=== PATIENT | male | born 1940 | race Caucasian/White ===

== ENCOUNTER 2022-06-17 05:05 | Observation (INO) ==
--- NOTE | 2022-05-20 10:53 | PAT Medication Instructions ---
Medication Instructions Date of Service May 20, 2022 Home Medications calcium 600 mg capsule 600 mg PO QAM celecoxib 200 mg capsule (Celebrex) 200 mg PO BID cholecalciferol (vitamin D3) 25 mcg (1,000 unit) tablet (Vitamin D3) 25 mcg PO QAM ferrous sulfate 325 mg (65 mg iron) tablet 325 mg PO 3XWK folic acid 1 mg tablet 1 mg PO QAM levothyroxine 137 mcg tablet 137 mcg PO QAM methotrexate sodium 2.5 mg tablet 2.5 mg PO UD ASK your surgeon for instructions celecoxib 200 mg capsule (Celebrex) 200 mg PO BID DO NOT take the morning of surgery calcium 600 mg capsule 600 mg PO QAM cholecalciferol (vitamin D3) 25 mcg (1,000 unit) tablet (Vitamin D3) 25 mcg PO QAM ferrous sulfate 325 mg (65 mg iron) tablet 325 mg PO 3XWK folic acid 1 mg tablet 1 mg PO QAM Take morning of surgery With a small sip of water, OTHERWISE NOTHING TO EAT OR DRINK AFTER MIDNIGHT: levothyroxine 137 mcg tablet 137 mcg PO QAM STOP taking 7 days before surgery methotrexate sodium 2.5 mg tablet 2.5 mg PO UD Other Notes If you have any questions please call us at [phone] or [phone] or [phone] or [phone]
--- NOTE | 2022-05-25 11:51 | Anesthesiology Consultation ---
Date of Service May 25, 2022 Assessment & Plan (1) Encounter for pre-operative examination: Plan - PCP appointment today, ongoing back pain: upcoming CT abdomen and pelvis ordered by PCP. Pt denies change in symptoms since seeing PCP earlier today. Will need PCP to comment if pt is acceptable to proceed pending planned work-up. Awaiting PCP response. - Outpatient joint assessment: Patient is currently scheduled for inpatient pathway. If re-evaluated pending system levels during current pandemic/surgeon requests outpatient pathway, patient is not acceptable candidate for outpatient joint program from anesthesia standpoint. Chart Review Chart Review: Pending: Refer to Additional Notes / Consult section and Patient seen in Pre Admission Testing Teaching & Discussion Pre-Anesthesia Teaching/Discussion Notes: Instructed NPO after midnight before surgery, except medications with 15 cc of water. Medication instructions provided according to the PAT guidelines. History Surgery Operation Date: 06/17/22 07:00 Proposed Procedures p Right Total Knee Arthroplasty - Wilder Chang MD Height/Weight Height: 5 ft 10 in Weight: 78 kg Allergies Allergy/AdvReac Type Severity Reaction Status Date / Time No Known Allergies Allergy Mild Unverified 05/19/22 11:05 Medications Home Medications Medication Instructions Recorded Confirmed Last Taken calcium 600 mg capsule 600 mg PO QAM 05/19/22 05/19/22 Unknown celecoxib 200 mg capsule (Celebrex) 200 mg PO BID 05/19/22 05/19/22 Unknown cholecalciferol (vitamin D3) 25 25 mcg PO QAM 05/19/22 05/19/22 Unknown mcg (1,000 unit) tablet (Vitamin D3) ferrous sulfate 325 mg (65 mg 325 mg PO 3XWK 05/19/22 05/19/22 Unknown iron) tablet folic acid 1 mg tablet 1 mg PO QAM 05/19/22 05/19/22 Unknown levothyroxine 137 mcg tablet 137 mcg PO QAM 05/19/22 05/19/22 Unknown methotrexate sodium 2.5 mg tablet 2.5 mg PO UD 05/19/22 05/19/22 Unknown Past Medical History Medical History (Updated 05/25/22 @ 16:06 by Hal Baker PA-C) Elevated hemidiaphragm right History of prostate cancer radiation several yrs ago, pt unsure of exact yr/interval Hx of sleep apnea Hypothyroidism Kidney stones Rheumatoid arthritis Patient denies h/o stroke, seizures, heart attack, heart failure, DM, HTN, blood clots or blood transfusions. Exercise / Class Metabolic Activity II 4-5 Yardwork/Stairs/Walk up hill (denies CP or SOB with 1 FOS) Past Family History Family History (Updated 05/25/22 @ 16:03 by Hal Baker PA-C) Other Alzheimer disease No family history of adverse response to anesthesia Osteoarthritis Rheumatoid arthritis Past Surgical History Surgical History H/O foot surgery right H/O hand surgery right H/O inguinal hernia repair X 2 H/O wrist surgery left History of colonoscopy History of tooth extraction Hx of prostate biopsy Past Anesthesia History No Hx of Anesthesia Complications and No Family Hx of Anesthesia Complications History of PONV No Hx of PONV and No Hx of Motion Sickness Social History Smoking Status: Former smoker tobacco type: cigarettes Do You Dip or Chew Tobacco: No Smoking End Date: 60+YEARS AGO Hx Alcohol Use: Yes Alcohol type: beer alcohol intake frequency: a few times a month substance use type: does not use Review of Systems Patient denies chest pain, shortness of breath, dyspnea on exertion, reflux, fever, chills, cough, wheezing, or palpitations. Physical Exam Vital Signs Vitals BP 110/75 P 83 TEMP 98.8 SP02 95% on RA RESP 18 Physical Full cervical extension range of motion without pain TMD 3.5 finger breadths Mallampati Score 3 Dentition: intact, partial upper left; denies chipped or loose teeth, caps/crowns Lungs: normal respiratory effort. Clear throughout to auscultation, no adventitious breath sounds Cardiac: regular rate and rhythm, no murmurs noted Carotid arteries: negative bruit bilat Lab Results Anesthesia Preop Results Results Anesthesia Widget: WBC 8.97 K/ul (4.8-10.8) 05/25/22 Hgb 14.4 g/dl (14.0-18.0) 05/25/22 Hct 42.5 % (40.1-51.0) 05/25/22 Plt 194 K/uL (130-400) 05/25/22 Na 139 mmol/L (136-145) 05/25/22 K 4.3 mmol/L (3.5-5.1) 05/25/22 Cl 103 mmol/L (98-107) 05/25/22 CO2 30 mmol/L (21-32) 05/25/22 BUN 19 mg/dl (6-23) 05/25/22 Creat 0.97 mg/dl (0.6-1.4) 05/25/22 Glucose Level 110 mg/dl (70-99(Fasting)) H 05/25/22 PT 10.9 Seconds (9.0-12.0) 05/25/22 PTT 28.2 Seconds (21.0-31.0) 05/25/22 INR 1.0 (0.9-1.1) 05/25/22 Blood Type O Positive 05/25/22 Antibody Screen NEGATIVE 05/25/22 Testing Laboratory Results UA 05/25/22: small bili, small Hgb POC, neg nitrite and leuk est Electrocardiogram Date: 05/26/22 NSR with sinus arrhythmia, rate 79 bpm Incomplete RBBB Left anterior fascicular block Nonspecific T wave abnormality Chest X-Ray Date: 02/05/22 No lines and tubes are seen. The cardiomediastinal silhouette is normal. Elevation of the right hemidiaphragm is again seen. Previously noted right pulmonary density likely represents focal atelectasis versus scar. No evidence of pleural effusion or pneumothorax. IMPRESSION: No acute abnormalities and in particular no evidence of pneumonia. Cervical Spine Date: 05/25/22 No fractures or subluxations are identified. Degenerative changes are noted in the cervical spine. Limited range of motion with flexion and extension noted. Prevertebral soft tissues are within normal limits. IMPRESSION: Degenerative changes without evidence of acute abnormality. COVID-19 Risk Screen Screening Information COVID-19 Screen Date: 05/25/22 Exposure 21 Days Family/Household +COVID Last 21 Days: No Exposure 10 Days Any COVID Exposure Last 10 Days: No Symptoms Last 10 Days Experienced COVID Sx Last 10 Days: No + COVID 0-90 Days COVID + in Last 0-90 Days: No
--- NOTE | 2022-05-25 16:07 | History & Physical Report ---
Date of Service May 25, 2022 Assessment & Plan (1) Right knee DJD: Plan: Postoperative prescriptions for Percocet and warfarin will be provided at discharge from the hospital. Anticipate discharge to home with home health services. He would like home therapy for 2 weeks and then transition to outpatient PT at [facility]. PDMP was checked and there were no concerning findings. The patient is aware of COVID-19 risks associated with surgery. He is currently asymptomatic of any COVID-19 symptoms. He already has access to a cane. Prescription was provided for a walker. He will bring this with him to the hospital. He is already scheduled to obtain medical clearance from his PCP. History of Present Illness Chief Complaint: Right knee pain Primary Care Provider: Alonzo Meza DO This 81-year-old male presents today with his , for his preoperative history and physical. He is scheduled to undergo a right knee total knee arthroplasty on 06/17/2022. He has had longstanding history of right knee pain. It has been ongoing for years. He did do well with viscosupplementation for many years, but states it has not been helping over the last 10-12 months. He did try cortisone injections as well without lasting relief. No numbness or tingling. No locking or catching. No buckling. Pain is affecting his ADLs. It is worse with weightbearing. He elected to proceed with surgical intervention in hopes of improving his pain and function. Preoperative imaging has been obtained. Allergies Allergy/AdvReac Type Severity Reaction Status Date / Time No Known Allergies Allergy Mild Unverified 05/19/22 11:05 Home Medications Medication Instructions Recorded Confirmed Type calcium 600 mg capsule 600 mg PO QAM 05/19/22 05/19/22 History celecoxib 200 mg capsule (Celebrex) 200 mg PO BID 05/19/22 05/19/22 History cholecalciferol (vitamin D3) 25 25 mcg PO QAM 05/19/22 05/19/22 History mcg (1,000 unit) tablet (Vitamin D3) ferrous sulfate 325 mg (65 mg 325 mg PO 3XWK 05/19/22 05/19/22 History iron) tablet folic acid 1 mg tablet 1 mg PO QAM 05/19/22 05/19/22 History levothyroxine 137 mcg tablet 137 mcg PO QAM 05/19/22 05/19/22 History methotrexate sodium 2.5 mg tablet 2.5 mg PO UD 05/19/22 05/19/22 History Past Med/Surg History Medical History (Updated 05/25/22 @ 16:06 by Hal Baker PA-C) Elevated hemidiaphragm right History of prostate cancer radiation several yrs ago, pt unsure of exact yr/interval Hx of sleep apnea Hypothyroidism Kidney stones Rheumatoid arthritis Surgical History H/O foot surgery right H/O hand surgery right H/O inguinal hernia repair X 2 H/O wrist surgery left History of colonoscopy History of tooth extraction Hx of prostate biopsy Family History (Updated 05/25/22 @ 16:03 by Hal Baker PA-C) Other Alzheimer disease No family history of adverse response to anesthesia Osteoarthritis Rheumatoid arthritis Social History (Updated 05/25/22 @ 16:04 by Hal Baker PA-C) Smoking Status: Former smoker Second Hand Exposure: Yes ( A CHILD); Hx Alcohol Use: Yes Alcohol type: beer Preferred Language: Barbadian Hearing Ability: Normal Counter Stitcher Required: No Beliefs That Will Affect Care: None marital status: Current Living Situation: Spouse current occupational status: retired Feels Safe at Home: Yes Assistive Devices: Glasses Review of Systems Review of Systems: All systems reviewed & are unremarkable except as noted in HPI & below A total of 10 systems were reviewed. Physical Exam Physical Exam: Vitals: Height 173 cm, weight 76.8 kg, BMI 25.7, temperature 36.5, blood pressure 118/74, pulse 86, O2 sat 95% on room air. General: Well-developed, well-nourished elderly white male in no acute distress. Sitting on a chair. Alert and oriented. Skin: Warm and dry with good turgor. No rashes or lesions. No ecchymosis. No intra-articular effusion. HEENT: Normocephalic, atraumatic. Eyes: PERRLA, EOMI. He is wearing glasses. Nares and oropharynx exams deferred due to COVID precautions. Heart RRR. Occasional premature beat. No MGR. Lungs: Clear to auscultation bilaterally. No crackles, rhonchi or wheezing. Good air movement. Abdomen: Bowel sounds present x4, soft and nontender. No organomegaly. No masses. Musculoskeletal: Right knee evaluation reveals no intra-articular effusion, redness or warmth. There is a lack of about 5 degrees of terminal extension. Flexion to greater than 100 degrees. Strength is 5/5 with fairly good quad tone given his age. Obvious arthritic changes. There is a large soft fluctuant mass present around the medial joint line. I suspect it is a parameniscal cyst. He has discomfort with palpation over the medial and lateral joint lines. Stable collateral ligaments. No defect in the patellar tendon or quadriceps tendon. He is ambulatory today with an antalgic gait. Neurologic: Gross sensation is intact across the right leg by soft touch. Peripheral pulses are 2+. Results & Data Results & Data ([facility]) Diagnostic Findings Radiographic imaging obtained today of the right knee shows end-stage DJD of the right knee. There is total joint space loss, periarticular osteophytes, and subchondral sclerosis. Code Status & VTE Plan VTE Prophylaxis Plan VTE Prophylaxis will be ordered: Yes
--- NOTE | 2022-06-17 05:28 | History & Physical Bridge Note ---
Date of Service June 17, 2022 History & Physical Bridge Note I have examined the patient, reviewed the History & Physical and in the interval since the performance of the History & Physical I have noted the following changes of clinical significance: no changes noted
[2022-06-17] MEDS ORDERED: ROPIVACAINE 0.5% HCL/PF 150 MG, BUPIVACAINE 0.75% MPF 20 ML, EPINEPHrine 0.15 MG, Ketor... INFIL SCH (06:00)
[2022-06-17] MEDS ORDERED: LR 60ML/HR IV SCH (06:00)
[2022-06-17] MEDS ORDERED: TRANEXAMIC ACID 1,000 MG **IV Pre-op IV SCH (06:00)
[2022-06-17] MEDS ORDERED: LR 500ML BOLUS, THEN 15ML/HR IV SCH (06:00)
[2022-06-17] MEDS ORDERED: ceFAZolin 2000MG 2,000 MG/15 ML SYR IV SCH (06:00)
[2022-06-17] MEDS ORDERED: ROPIVACAINE 0.5% 5 MG/ML 30 ML VIAL ONE (06:33)
[2022-06-17] MEDS ORDERED: BUPIVACAINE 0.5 % 5 MG/1 ML PF 10ML VIAL ONE (06:33)
[2022-06-17] MEDS ORDERED: ORTHO JOINT ANESTHETIC ONE (06:36)
[2022-06-17] MEDS ORDERED: fentaNYL citrate 100 MCG/2 ML VIAL ONE (06:41)
[2022-06-17] MEDS ORDERED: LIDOCAINE 2% MPF LOCAL 5 ML VIAL INFIL ONE (06:41)
[2022-06-17] MEDS ORDERED: MIDAZOLAM HCL 1 MG/ML 2ML VIAL ONE (06:41)
[2022-06-17] MEDS ORDERED: ePHEDrine sulfate 50 MG/ML AMP IV PRN (06:41)
[2022-06-17] MEDS ORDERED: ATROPINE SULFATE 0.1 MG/ML 10ML SYR IV PRN (06:41)
[2022-06-17] MEDS ORDERED: PROPOFOL IV EMULSION 10 MG/ML 20 ML VIAL IV ONE (06:41)
[2022-06-17] MEDS ORDERED: fentaNYL citrate 100 MCG/2 ML VIAL IV PRN (06:41)
[2022-06-17] MEDS ORDERED: ONDANSETRON INJ 2 MG/ML 2 ML VIAL ONE ×2 (06:41→07:14)
[2022-06-17] MEDS ORDERED: ONDANSETRON INJ 2 MG/ML 2 ML VIAL IV PRN ×2 (06:41→11:30)
[2022-06-17] MEDS ORDERED: DEXAMETHASONE SOD INJ 4 MG/ML VIAL ONE (08:20)
[2022-06-17] MEDS ORDERED: PHENYLEPHRINE 100MCG/ML 5ML SYR ONE (08:21)
--- NOTE | 2022-06-17 08:22 | Post Operative Brief Note ---
Immediate Post Op Note v1 Date of Surgery June 17, 2022 Pre & Post Diagnosis Operation Date: 06/17/22 07:00 Pre-Op Diagnosis: Right Knee Degenerative Joint Disease Post-Op Diagnosis: Right Knee Degenerative Joint Disease I identified the patient and participated in the time-out.: Yes Procedure Operation Date: 06/17/22 07:00 Actual Procedures p Right Total Knee Arthroplasty(Right) - Wilder Chang MD Surgeon Wilder Chang MD Interface [facility] Blood Loss 30 Findings Consistent with Post-Op Diagnosis
--- NOTE | 2022-06-17 08:35 | Operative Report ---
Post Operative Report Pre & Post Diagnosis Operation Date: 06/17/22 07:00 Pre-Op Diagnosis: Right Knee Degenerative Joint Disease Post-Op Diagnosis: Right Knee Degenerative Joint Disease I identified the patient and participated in the time-out.: Yes Procedure Operation Date: 06/17/22 07:00 Actual Procedures p Right Total Knee Arthroplasty(Right) - Wilder Chang MD Surgeon CHET Chang MD Sleeve Turner Samuel CALDWELL Estimated Blood Loss 30 Findings Consistent with Post-Op Diagnosis see operative report Specimens see operative report Drains none Complications none Disposition Accompanied Patient To Recovery: Yes Indications This 81-year-old male presented to the office with complaints of persisting right knee pain. He had tried conservative care measures without improvement. He elected to proceed with surgical intervention after being educated about potential risks and outcomes. Preoperative imaging was obtained. Description of Procedure Patient was administered a spinal anesthetic and then taken to the operating room where he was given sedation. He was prepped and draped in the usual st erile fashion. Please see Dr. Chang's operative report for specifics of the procedure. I was present for the entire case from initial patient positioning through final wound closure. Assistance was provided in tissue retraction, hemostasis, trial implant placement, final implant placement, and final wound closure. Patient was taken to the recovery room in satisfactory condition. I attest to the content of the Intraoperative Record and any orders documented therein. Any exceptions are noted below.
[2022-06-17] MEDS ORDERED: TRANEXAMIC ACID / 0.7% NACL 1,000 MG/100 ML BAG IV ONE (08:47)
--- NOTE | 2022-06-17 08:55 | XRay Report ---
XR knee RT 1 or 2V routine CLINICAL HISTORY: S/P R TKA TECHNIQUE: 2 views of the right knee were obtained. Comparison: Comparison is made to right knee radiographs 05/25/2022 FINDINGS: Patient is status post total knee arthroplasty with expected postsurgical changes including soft tiss ue swelling and subcutaneous emphysema. No periarticular lucency or hardware fracture is seen. IMPRESSION: Expected postoperative appearance status post placement of total knee arthroplasty. ACT 112: Negative or not required by law. Electronically signed by: Allan Gonzáles M.D. 06/17/2022 8:54 AM
--- NOTE | 2022-06-17 09:01 | Progress Notes ---
DATE OF NOTE: 06/17/2022 SUBJECTIVE: Postop check status post right total knee replacement. The patient is doing well. Denies any chest pain, shortness of breath, fever, chills, nausea, vomiti ng or headache. OBJECTIVE: VITAL SIGNS: Stable. He is afebrile. NEUROVASCULAR CHECK: Femoral sciatic nerve is limited by his spinal. Wound dressing clean, dry and i ntact. Calves nontender. Nonswollen. IMAGING: X-rays, AP and lateral of his right knee reveals excellent positioning of his total knee re placement. ASSESSMENT: Status post right total knee replacement. Continue with care pathway. Informed his wif e that he was finished. Case management to arrange plans postoperative. Discharge tomorrow. Job ID: [id number]
--- NOTE | 2022-06-17 09:07 | Discharge Summary (DS) ---
DATE OF ADMISSION: 06/17/2022. DATE OF DISCHARGE: 06/18/2022 He does well overnight. CHIEF COMPLAINT: Right knee pain. HISTORY OF PRESENT ILLNESS: Underwent elective right total knee replacement. Hospital course has be en uneventful to date. The patient has had chronic knee pain for decades. He has failed conservative management including m ultiple series of injections. Wants to proceed with surgical treatment. This was performed. Surgic al procedure without any issues. PAST MEDICAL HISTORY: Remarkable for hemidiaphragm elevation on the right, history of prostate cance r, sleep apnea, hypothyroidism, kidney stones, rheumatoid arthritis. HISTORY OF SURGERY: Includes foot surgery, hand surgery, hernia repairs, wrist surgery, colonoscopies , tooth extraction and prostate biopsy. FAMILY HISTORY: Remarkable for Alzheimer disease, osteoarthritis, rheumatoid arthritis. SOCIAL HISTORY: Reveals he is , former smoker. Social alcohol. , lives with his . Feels safe at home. Wears glasses. REVIEW OF SYSTEMS: Reveals no chest pain, shortness of breath, fever, chills, nausea, vomiting or he adache. He has a minor cough. IMAGING: Postoperative x-rays look excellent. ASSESSMENT: Doing well status post right total knee replacement. Continue postoperative care nkechi og. Discharge home tomorrow if he does well overnight. Job ID: [id number]
--- NOTE | 2022-06-17 09:09 | Operative Report (OR) ---
DATE OF PROCEDURE: 06/17/2022. SURGEON: Wilder Chang MD. CERAMIC ARTIST: Hal Baker PA-C. No resident or fellow available. PREOPERATIVE DIAGNOSIS: Osteoarthritis with varus deformity, right knee. POSTOPERATIVE DIAGNOSIS: Osteoarthritis with varus deformity, right knee. OPERATION PERFORMED: Cemented right total knee replacement. SUMMARY OF IMPLANTS: Size 4 narrow right femur, size 4 mobile bearing tray, size 38 patella, size 4 x 10 mm posterior cruciate substituting insert, J and J rotating platform total knee replacement. ESTIMATED BLOOD LOSS: 30 mL CRYSTALLOID: Per anesthesia. PATHOLOGY: Pending on bone. DVT PROPHYLAXIS: Per protocol. PERIOPERATIVE SITUATION: Medically cleared male with intractable knee pain, has been followed for de cades. At this point in time, wants to proceed with surgical treatment. He understands the risks an d consequences including infection, revision, stiffness, etc. DESCRIPTION OF PROCEDURE: The patient was appropriately identified, site verified, consent verified. Antibiotics were confirmed as being given. The right lower extremity was prepped and draped in the usual routine fashion. Tourniquet was inflated to 275 mmHg after exsanguination of the limb with a rubber Esmarch bandage for a total of 48 minutes. Midline exposure was utilized. Parapatellar arthr otomy performed. Synovectomy completed. Osteophytes resected. Distal femur entered. Cruciates res ected. Tibia was subluxated, menisci resected. Distal femur resected 12 mm, proximal tibia 4 mm, th e extension gap was excellent. The femur was sized between a 5 and a 4, was measured 5, cut 4. No n otching. Flexion gap was excellent. The posterior capsule was injected with Orthomix. The box cut was then made a size 4 narrow fit well. Tibia was then subluxated, broached and reamed to a size 4. A 10 mm tray offered excellent stability , excellent extension, excellent flexion and excellent mid range stability. Patella was then everted , resected leaving 15 mm and a 38 button applied after seating holes made, it tracked well. All tria l implants were then removed after the Orthomix was injected. The wound was irrigated with Pulsavac, Betadine and then Pulsavac, and then permanently cemented the implants in tibia, femur, and patella in that order. At 12 minutes, the tourniquet deflated. Minor bleeding points controlled with electr ocautery. At 14 minutes, the knee flexed. The trial spacer removed. No cement removal was required . The wound was irrigated with Pulsavac and Betadine one final time and then the permanent liner sea vasquez. The knee reduced and closed at 40 degrees of flexion with #2 Vicryl, 2-0 Vicryl and stainless s marta clips. Appropriate dressing applied. The patient was transferred to recovery room in satisfact ory condition, having tolerated the procedure well. The patient's was notified following the una mcnulty. Job ID: [id number]
--- NOTE | 2022-06-17 10:50 | Anesthesiology Progress Note ---
Date of Service June 17, 2022 Anesthesia Post Procedure Vital Signs Vital Signs: Temp Pulse Pulse Resp BP Pulse Ox O2 Del Method 06/17/22 10:30 98.6 F 63 21 111/73 97 Nasal Cannula 06/17/22 10:00 55 L 20 118/79 95 Nasal Cannula 06/17/22 09:50 62 21 125/69 95 Nasal Cannula 06/17/22 09:40 56 L 16 127/75 99 Nasal Cannula 06/17/22 09:00 59 L 15 123/52 L 97 Nasal Cannula 06/17/22 08:50 67 20 105/59 L 92 Room Air 06/17/22 09:30 98.2 F 55 L 19 120/75 98 Nasal Cannula 06/17/22 09:20 59 L 22 124/73 98 Nasal Cannula 06/17/22 09:10 56 L 17 95/66 L 97 Nasal Cannula 06/17/22 08:40 70 22 110/71 98 Oxymask 06/17/22 08:33 98.2 F 66 20 100/67 99 Oxymask 06/17/22 05:38 97.5 F L 79 20 135/105 H 96 Room Air O2 Flow Rate 06/17/22 10:30 2 06/17/22 10:00 2 06/17/22 09:50 2 06/17/22 09:40 2 06/17/22 09:00 2 06/17/22 08:50 06/17/22 09:30 2 06/17/22 09:20 2 06/17/22 09:10 2 06/17/22 08:40 5 06/17/22 08:33 5 06/17/22 05:38 Transfer of Care Handoff Completed per policy Notes Mental Status: alert / awake / arousable and participated in evaluation Patient Amnestic to Procedure: Yes Nausea / Vomiting: adequately controlled Pain: adequately controlled Airway Patency, RR, SpO2: stable & adequate BP & HR: stable & adequate Hydration State: stable & adequate Neuraxial Anesthesia: was administered and sensory block is resolving Anesthetic Complications: no major complications apparent and Pt Satisfied with anesthetic care Notes: In PACU, the patient was noted to have inverted T waves on the monitor. The patient remained comfortable and asymptomatic denying CP or SOB. A 12 lead EKG was ordered showing inverted T waves on the lateral leads. I spoke with the orthopedic team, and I recommended that medicine should be consulted to further evaluate the patient. The patient was otherwise stable and stable for discharge to the floor.
--- NOTE | 2022-06-17 11:09 | Hospitalist Consultation ---
Date of Consultation June 17, 2022 Assessment & Plan (1) Acute electrocardiogram changes: Concern for TWI in lateral leads jeni/postoperatively. Patient with no known CAD, prior IL or cardiovascular disease. No chest pain or shortness of breath usually on exertion Suspect TWI is just slightly more pronounced from pre-op EKG showing non- specific TW abnormal flattening in lateral leads Will observe on telemetry Low suspicion of ACS therefore aspirin deferred given just post operative from TKA As long as troponin down-trending and not significant raised, no wall motion abnormalities on TTE or arrhythmia on telemetry; no need for cardiology consult (2) Right knee DJD: Pain, diet, bowel and VTE prophylaxis management per primary orthopedic team (3) Rheumatoid arthritis: Restart methotrexate when okay by orthopedics Continue folic acid (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 Actual surgery reportedly uncomplicated with estimated blood loss of 30 mL. However during surgery he did have a lot of coughing and was noted to have T wave inversions in the lateral leads. Postop EKG confirms T wave inversions in lateral leads. On advice of anesthesia medicine was consulted to assess this. The patient reports no previous myocardial infarction, coronary artery disease or stroke. He has been limited in his walking due to his right knee arthritis however he reports no chest pain or shortness of breath on exertion. He has a past medical history of hypothyroidism and rheumatoid arthritis. No hypercholesterolemia. He is a former smoker 60+ years ago. Patient seen in [facility] after surgery. He reports feeling well at this time with no chest pain or shortness of breath. No palpitations, orthopnea, PND. Allergies Allergy/AdvReac Type Severity Reaction Status Date / Time No Known Allergies Allergy Mild Verified 06/17/22 05:31 Home Medications Medication Instructions Recorded Confirmed Type calcium 600 mg capsule 600 mg PO QAM 05/19/22 06/17/22 History celecoxib 200 mg capsule (Celebrex) 200 mg PO BID 05/19/22 06/17/22 History cholecalciferol (vitamin D3) 25 25 mcg PO QAM 12/13/22 01/11/23 History mcg (1,000 unit) tablet (Vitamin D3) ferrous sulfate 325 mg (65 mg 325 mg PO 3XWK 05/19/22 06/17/22 History iron) tablet folic acid 1 mg tablet 1 mg PO QAM 05/19/22 06/17/22 History levothyroxine 137 mcg tablet 137 mcg PO QAM 05/19/22 06/17/22 History methotrexate sodium 2.5 mg tablet 2.5 mg PO UD 05/19/22 06/17/22 History Patient History Medical History (Updated 06/17/22 @ 12:58 by Jose Aguilera MD) Elevated hemidiaphragm right History of prostate cancer radiation several yrs ago, pt unsure of exact yr/interval Hx of sleep apnea Hypothyroidism Kidney stones Rheumatoid arthritis Surgical History H/O foot surgery right H/O hand surgery right H/O inguinal hernia repair X 2 H/O wrist surgery left History of colonoscopy History of tooth extraction Hx of prostate biopsy Family History (Updated 05/25/22 @ 16:03 by Hal Baker PA-C) Other Alzheimer disease No family history of adverse response to anesthesia Osteoarthritis Rheumatoid arthritis Social History (Updated 05/25/22 @ 16:04 by Hal Baker PA-C) Smoking Status: Former smoker Smoking End Date: 60+YEARS AGO; Second Hand Exposure: Yes ( A CHILD); Do You Dip or Chew Tobacco: No; Hx Alcohol Use: Yes Alcohol type: beer Preferred Language: Malagasy Hearing Ability: Normal Bike Mechanic Required: No Beliefs That Will Affect Care: None marital status: Current Living Situation: Spouse current occupational status: retired Feels Safe at Home: Yes Safety Concerns: Feels Safe At This Time Assistive Devices: Glasses Assistive Devices Comment: PARTIAL UPPER Review of Systems Review of Systems: All systems reviewed & are unremarkable except as noted in Subjective Physical Exam Constitutional: WD/WN, vitals as above Eyes: + anicteric sclerae; normal pupil size Respiratory: normal respiratory effort, lungs clear to auscultation Cardiovascular: RRR, no murmur, no edema Gastrointestinal (Abdomen): normal bowel sounds, soft, nontender, no hepatosplenomegaly Neurologic: moves all extremities and awake; no focal motor deficits and not confused Psychiatric: A+Ox3, euthymic affect Results & Data Results & Data ([facility]) Vital Signs (Past 12 Hours) Vital Signs Temp Pulse Pulse Resp BP Pulse Ox O2 Del Method 06/17/22 11:00 61 23 118/69 97 Nasal Cannula 06/17/22 10:30 37 C 63 21 111/73 97 Nasal Cannula 06/17/22 10:00 55 L 20 118/79 95 Nasal Cannula 06/17/22 09:50 62 21 125/69 95 Nasal Cannula 06/17/22 09:40 56 L 16 127/75 99 Nasal Cannula 06/17/22 09:00 59 L 15 123/52 L 97 Nasal Cannula 06/17/22 08:50 67 20 105/59 L 92 Room Air 06/17/22 09:30 36.8 C 55 L 19 120/75 98 Nasal Cannula 06/17/22 09:20 59 L 22 124/73 98 Nasal Cannula 06/17/22 09:10 56 L 17 95/66 L 97 Nasal Cannula 06/17/22 08:40 70 22 110/71 98 Oxymask 06/17/22 08:33 36.8 C 66 20 100/67 99 Oxymask 06/17/22 05:38 36.4 C L 79 20 135/105 H 96 Room Air O2 Flow Rate 06/17/22 11:00 2 06/17/22 10:30 2 06/17/22 10:00 2 06/17/22 09:50 2 06/17/22 09:40 2 06/17/22 09:00 2 06/17/22 08:50 06/17/22 09:30 2 06/17/22 09:20 2 06/17/22 09:10 2 06/17/22 08:40 5 06/17/22 08:33 5 06/17/22 05:38 ECG Indication: other (lead changes perioperatively) Rhythm: normal sinus Findings: + T-wave inversion (V5-6) and + left axis deviation Comparison ECG Date: from (May 25, 2022) Change: the following changes noted (T wave flattening now appears inverted) PG Care Time/CCT Total # of Minutes Spent Total Time Spent with Patient: Total time spent is greater than 50% in coordination of care (as documented) at patient's floor/unit and/or counseling patient: Coding Level of Care Code INP/OBS CONSULT LVL 4, 60 MIN Diagnoses Acute electrocardiogram changes R94.31 Right knee DJD M17.11 Rheumatoid arthritis M06.9 Elevated hemidiaphragm J98.6
[2022-06-17] MEDS ORDERED: METOCLOPRAMIDE HCL INJ 5 MG/ML 2 ML VIAL IV PRN (11:30)
[2022-06-17] MEDS ORDERED: HYDROmorphone INJ 0.5 MG/0.5 ML SYR IV PRN (11:30)
[2022-06-17] MEDS ORDERED: diphenhydrAMINE 50 MG/ML VIAL IV PRN (11:30)
[2022-06-17] MEDS ORDERED: bisacodyL 10 MG SUPP PR PRN (11:30)
[2022-06-17] MEDS ORDERED: SODIUM CHLORIDE 0.9% 1000ML 1,000 ML IV SCH (11:30)
[2022-06-17] MEDS ORDERED: NALOXONE HCL 0.4 MG/1 ML VIAL/CARP IV PRN (11:30)
[2022-06-17] MEDS ORDERED: TAMSULOSIN HCL 0.4 MG CAP PO PRN (11:30)
[2022-06-17] MEDS ORDERED: ALUMINUM/MAGNESIUM SUSP 30 ML UDC PO PRN (11:30)
[2022-06-17] MEDS ORDERED: TRANEXAMIC ACID / 0.7% NACL 1,000 MG/100 ML BAG IV STA (11:30)
[2022-06-17] MEDS ORDERED: oxyCODONE HCL IR 5 MG TAB (IMMEDIATE RELEASE) PO PRN (11:30)
[2022-06-17] MEDS ORDERED: MAGNESIUM HYDROXIDE SUSP 30 ML UDC PO PRN (11:30)
[2022-06-17] MEDS: DOCUSATE SODIUM 100 MG CAP PO SCH ×2 (13:12→21:06)
[2022-06-17] MEDS: CHOLECALCIFEROL 1,000 UNITS 25 MCG TAB PO SCH (13:13)
[2022-06-17] MEDS: CALCIUM CARBONATE 500 MG CHEWABLE TAB PO SCH (13:13)
[2022-06-17] MEDS: MULTIVITAMIN TAB PO SCH (13:13)
[2022-06-17] MEDS ORDERED: KETOROLAC 30 MG/ML VIAL ONE (13:23)
[2022-06-17] MEDS: KETOROLAC TROMETHAMINE 15 MG/ML VIAL IV SCH ×3 (13:24→22:42)
[2022-06-17] MEDS: LEVOTHYROXINE SODIUM 137 MCG TABLET PO SCH (13:25)
--- NOTE | 2022-06-17 14:44 | Discharge Summary (DS) ---
ADDENDUM The patient had some EKG lead changes. Workup to this point in time has been uneventful. He feels f ine. He has no chest pain, but he will be placed on a monitored bed for observation. We will contin ue his orthopedic pathway as long as cardiac status remains as good as it is right now. Discussed in detail with him and his . Job ID: [id number]
--- NOTE | 2022-06-17 14:46 | Progress Notes ---
DATE OF NOTE: 06/17/2022 SUBJECTIVE: The patient is seen at bedside postop. He is still in phase 1 of recovery. Workup for EKG change has been in progress and has been uneventful. At this point in time, he is completely without any symptoms. He denies chest pain, shortness of breath, fever, chills, nausea, vomiting, or headache. OBJECTIVE: Vital signs are stable. He is afebrile. He is 99% saturated on 2 liters of O2. PHYSICAL EXAM: Reveals a clean, dry dressing. NEUROLOGICAL CHECK: Femoral sciatic nerve is intact. LABORATORY DATA: Troponin is 4.9. Upper limit of normal is 20. ASSESSMENT: Doing well clinically, status post right total knee replacement. Can do a straight leg raise, can wiggle his toes. His dressing is clean and dry. He denies any symptoms. He is being placed on telemetry as a precaution. He needs to continue to do his orthopedic pathway. Coumadin dose per nomogram trey. Job ID: [id number] [facility]
[2022-06-17] MEDS: ACETAMINOPHEN 500 MG TAB PO SCH ×2 (14:52→21:07)
[2022-06-17] MEDS: ceFAZolin 2000MG 2,000 MG/15 ML SYR IV SCH ×2 (14:53→22:43)
[2022-06-17 15:25] LABS: INR 1.1 (0.9-1.1); Prothrombin Time 11.3 Seconds (9.0-12.0)
--- NOTE | 2022-06-17 15:40 | Electrocardiogram Report ---
Test Reason : Blood Pressure : / mmHG Vent. Rate : 056 BPM Atrial Rate : 056 BPM P-R Int : 174 ms QRS Dur : 092 ms QT Int : 452 ms P-R-T Axes : 017 -39 -43 degrees QTc Int : 436 ms Sinus bradycardia Left axis deviation Incomplete right bundle branch block Minimal voltage criteria for LVH, may be normal variant T wave abnormality, consider lateral ischemia Abnormal ECG When compared with ECG of 25-MAY-2022 12:22, T wave inversion more evident in Inferior leads Inverted T waves have replaced nonspecific T wave abnormality in Lateral leads Confirmed by Jonny Machuca ([id number]) on 06/17/2022 3:39:55 PM Referred By: Wilder Chang Confirmed By:Jonny Machuca
[2022-06-17] MEDS: ORTHO WARFARIN NOMOGRAM SCH (16:02)
[2022-06-17] MEDS ORDERED: WARFARIN SOD 5 MG TAB PO ONE (16:08)
[2022-06-17] MEDS: FERROUS GLUCONATE 324 MG TAB PO SCH (16:28)
[2022-06-17] MEDS: ASCORBIC ACID 500 MG TAB PO SCH (16:28)
--- NOTE | 2022-06-17 16:40 | XCELERA ---
[id number]
--- NOTE | 2022-06-17 17:08 | XRay Report ---
SINGLE VIEW CHEST CLINICAL HISTORY: Cough. Hypoxia FINDINGS: An AP, portable, upright chest radiograph is compared to study dated 02/05/2022. The cardiome diastinal silhouette is top normal for projection. Chronic interstitial thickening is similar to prev ious. There is chronic elevation of the right hemidiaphragm with bibasilar scarring/atelectasis. Ther e is a probable scarring are seen throughout both lungs. No airspace consolidation or large pleural e ffusion is identified. No pneumothorax is seen. The skeletal structures are osteopenic. The bony thor ax is grossly intact. IMPRESSION: No acute cardiopulmonary abnormality is identified. ACT 112: Negative or not required by law. Electronically signed by: Rey Mays M.D. 06/17/2022 5:07 PM
[2022-06-17] MEDS: SENNA 8.6 MG TAB PO SCH (21:08)
[2022-06-18] MEDS: ACETAMINOPHEN 500 MG TAB PO SCH ×3 (05:03→22:10)
[2022-06-18] MEDS: KETOROLAC TROMETHAMINE 15 MG/ML VIAL IV SCH (05:03)
[2022-06-18] MEDS: LEVOTHYROXINE SODIUM 137 MCG TABLET PO SCH (05:30)
[2022-06-18 06:56] LABS: Hematocrit (blood only) 33.8 % (40.1-51.0); Hemoglobin 11.7 g/dl (14.0-18.0); Mean Corpuscular Hemoglobin 31.6 pg (25.0-34.0); Mean Corpuscular Hgb Conc 34.6 g/dL (32.0-36.0); Mean Corpuscular Volume 91.4 fL (80.0-100.0); Mean Platelet Volume 10.5 fL (9.4-12.4); Platelet Count 216 K/uL (130-400); RDW Coefficient of Variation 14.2 % (11.5-14.5); RDW Standard Deviation 47.7 fL (36.4-46.3); White Blood Count 16.21 K/ul (4.8-10.8)
--- NOTE | 2022-06-18 07:10 | Progress Notes ---
SUBJECTIVE: Postop day #1 status post right total knee replacement. The patient was sleeping, easily aroused. He states he feels well. Slept on and off. He denies any chest pain, shortness of breath, fever, chills, nausea, vomiting, or headache. OBJECTIVE: Vital signs are stable. He is afebrile. Neurovascular check, femoral sciatic nerve is normal. Wound dressing clean, dry, and intact. Calves nontender. Can do a straight leg raise. LABORATORY DATA: Troponins have been within normal limits. A.m. labs are pending today. ASSESSMENT AND PLAN: Overall, doing well. Chest x-ray negative for any acute baseline change.. No cardiac symptoms. At this point, needs to get into his orthopedic pathway to get his knee moving, needs to get out of bed, needs a.m. PT and OT exam, case management assessment to prepare for discharge later today if medical status remains stable. Follow up with us in 2 weeks in the office. Coumadin to keep INR 1.8 to 2.2. This is for DVT and PE prophylaxis and not treating disease. Job ID: [id number] [facility]
[2022-06-18 07:16] LABS: Troponin I High Sensitivity 5.9 pg/ml (0-20)
[2022-06-18 07:33] LABS: INR 1.3 (0.9-1.1); Prothrombin Time 13.5 Seconds (9.0-12.0)
--- NOTE | 2022-06-18 07:58 | Hospitalist Progress Note ---
Date of Service June 18, 2022 Assessment & Plan (1) Acute electrocardiogram changes: Plan: Concern for TWI in lateral leads jeni/postoperatively with coughing Patient with no known CAD, prior [place] or cardiovascular disease. No chest pain or shortness of breath usually on exertion Suspect TWI is just slightly more pronounced from pre-op EKG showing non- specific TW abnormal flattening in lateral leads Observed on telemetry -- has been SR in 50-70s on monitor Troponin without significant elevation on serial measurements ECHO without wall motion abnormality Stable for d/c from cardiac stand point, no CP/SOB Of note, patient w/ cough/sinus congestion and reports he takes claritin daily. No crackles/rales to indicate infection, titrated to room air and remained stable Ordered dose of Claritin 10mg and can continue at d/c Per patient, planning for d/c later today (2) Right knee DJD: Plan: POD# 1 s/p RIGHT TKA with Dr Raygoza Pain control/bowel regimen/PT/OT per primary service WBC elevation likely 2nd to steroids, afebrile Hgb 14.4--> 11.7, acute blood loss anemia from surgery, dilutional from IVF as well as use of coumadin for DVT/PE prophylaxis per nomogram No evidence for hematoma on exam Outpt f/u ortho after discharge Dispo per primary service (3) Rheumatoid arthritis: Plan: Restart methotrexate when okay by orthopedics Continue folic acid (4) Elevated hemidiaphragm: Plan: Noted on chest x-ray - this is a chronic finding Asked RN to provide incentive spirometer and encouraged continued use at discharge Stable on room air, titrated this morning. (5) Allergic rhinitis: Plan: pt reports recently getting over sinus infection no sputum production but occasional cough/sinus congestion and takes Claritin daily ordered 10mg x 1 now prior to d/c and can continue at d/c CXR negative as above, notes elevated hemidiaphragm lungs clear on exam, slightly diminished in bases and encouraged deep breathing Plan Thank you for allowing hospitalist to participate in the care of Mr Travis. Hospitalist service will sign off at this time. Please call with any questions/concerns Admission and Anticipated Discharge Date Admission Date: June 17, 2022 Supervising Physician Co-Signing Physician Notes PA Supervision Note: I did not personally see or examine the patient today, but I verified all laehy points of CHARLINE Muniz's assessment and plan with the following exceptions/additions: Would repeat ECG prior to discharge to see if has improvement or resolution of TW changes. But agree no signs of ACS Subjective Eval this morning, doing well. pain controlled taken off oxygen and remains stable no chest pain or shortness of breath asked RN to provide incentive spirometer to make sure he's taking deep breaths. he does note he had a little bit of a sinus infection, nontender/no drainage currently and believes maybe has a little congestion lingering around. He does endorse he take a claritin daily, none ordered. Will have RN administer a dose prior to dc. Questions/concerns addressed at this time. Planning for dc this afternoon. Review of Systems Review of Systems: All systems reviewed & are unremarkable except as noted in HPI & below Physical Exam Physical Exam: General: WD/WN elderly male sitting up in chair, dressed, doing well, NAD HEENT: head normocephalic, post nasal drip, mmm, trachea midline Resp: CTAB, diminished slightly in the bases, no crackles/rales, on room air CV: RRR, no m/r/g, no pitting edema/calf tenderness GI: +BS, soft/NT no reid MSK/Neuro: immobilizer to right leg, oriana wrap/dressing c/d/i (changed this morning by ortho reported by patient, not removed) pulses intact, NVI, dorsiflexion/plantar flexion intact. Psych: AOx3 Skin: warm, dry Results & Data Results & Data ([facility]) Vital Signs (Past 12 Hours) Vital Signs Temp Pulse Pulse Resp BP BP Pulse Ox 06/18/22 07:46 36.6 C 56 L 19 117/66 95 06/18/22 03:45 58 L 06/18/22 03:26 36.5 C 60 18 125/72 95 06/17/22 23:24 36.6 C 62 18 129/68 94 O2 Del Method O2 Flow Rate 06/18/22 07:46 Nasal Cannula 2 06/18/22 03:45 06/18/22 03:26 Nasal Cannula 2 06/17/22 23:24 Nasal Cannula Laboratory Results 06/18/22 06/18/22 06/18/22 Range/Units 08:05 06:12 06:12 WBC (4.8-10.8) K/ul RBC (4.63-6.08) M/uL Hgb (14.0-18.0) g/dl Hct (40.1-51.0) % MCV (80.0-100.0) fL MCH (25.0-34.0) pg MCHC (32.0-36.0) g/dL RDW Std Deviation (36.4-46.3) fL RDW Coeff of [place] (11.5-14.5) % Plt Count (130-400) K/uL MPV (9.4-12.4) fL PT (9.0-12.0) Seconds INR (0.9-1.1) Sodium 138 (136-145) mmol/L Potassium 4.5 (3.5-5.1) mmol/L Chloride 105 (98-107) mmol/L Carbon Dioxide 29 (21-32) mmol/L Anion Gap 4 (3-11) BUN 20 (6-23) mg/dl Creatinine 1.02 (0.6-1.4) mg/dl Est Cr Clr Drug Dosing 59.6 ml/min Est GFR ( Amer) 80.1 ml/min Est GFR (Non-Af Amer) 69.1 ml/min BUN/Creatinine Ratio 19.6 (10-20) Glucose 118 H (70-99(Fasting)) mg/dl Calcium 9.0 (8.5-10.1) mg/dl Troponin I High Sens Cancelled 5.9 (0-20) pg/ml TSH 1.106 (0.300-4.500) uIu/ml 06/18/22 06/18/22 06/18/22 Range/Units 06:12 06:12 00:37 WBC 16.21 H (4.8-10.8) K/ul RBC 3.70 L (4.63-6.08) M/uL Hgb 11.7 L (14.0-18.0) g/dl Hct 33.8 L (40.1-51.0) % MCV 91.4 (80.0-100.0) fL MCH 31.6 (25.0-34.0) pg MCHC 34.6 (32.0-36.0) g/dL RDW Std Deviation 47.7 H (36.4-46.3) fL RDW Coeff of [place] 14.2 (11.5-14.5) % Plt Count 216 (130-400) K/uL MPV 10.5 (9.4-12.4) fL PT 13.5 H (9.0-12.0) Seconds INR 1.3 H (0.9-1.1) Sodium (136-145) mmol/L Potassium (3.5-5.1) mmol/L Chloride (98-107) mmol/L Carbon Dioxide (21-32) mmol/L Anion Gap (3-11) BUN (6-23) mg/dl Creatinine (0.6-1.4) mg/dl Est Cr Clr Drug Dosing ml/min Est GFR ( Amer) ml/min Est GFR (Non-Af Amer) ml/min BUN/Creatinine Ratio (10-20) Glucose (70-99(Fasting)) mg/dl Calcium (8.5-10.1) mg/dl Troponin I High Sens 4.5 (0-20) pg/ml TSH (0.300-4.500) uIu/ml 06/17/22 06/17/22 06/17/22 Range/Units 17:48 14:53 11:48 WBC (4.8-10.8) K/ul RBC (4.63-6.08) M/uL Hgb (14.0-18.0) g/dl Hct (40.1-51.0) % MCV (80.0-100.0) fL MCH (25.0-34.0) pg MCHC (32.0-36.0) g/dL RDW Std Deviation (36.4-46.3) fL RDW Coeff of [place] (11.5-14.5) % Plt Count (130-400) K/uL MPV (9.4-12.4) fL PT 11.3 (9.0-12.0) Seconds INR 1.1 (0.9-1.1) Sodium (136-145) mmol/L Potassium (3.5-5.1) mmol/L Chloride (98-107) mmol/L Carbon Dioxide (21-32) mmol/L Anion Gap (3-11) BUN (6-23) mg/dl Creatinine (0.6-1.4) mg/dl Est Cr Clr Drug Dosing ml/min Est GFR ( Amer) ml/min Est GFR (Non-Af Amer) ml/min BUN/Creatinine Ratio (10-20) Glucose (70-99(Fasting)) mg/dl Calcium (8.5-10.1) mg/dl Troponin I High Sens 5.1 4.9 (0-20) pg/ml TSH (0.300-4.500) uIu/ml Diagnostic Findings Chest X-Ray 06/17/22 11:06 SINGLE VIEW CHEST CLINICAL HISTORY: Cough. Hypoxia FINDINGS: An AP, portable, upright chest radiograph is compared to study dated 02/05/2022. The cardiomediastinal silhouette is top normal for projection. Chronic interstitial thickening is similar to previous. There is chronic elevation of the right hemidiaphragm with bibasilar scarring/atelectasis. There is a probable scarring are seen throughout both lungs. No airspace consolidation or large pleural effusion is identified. No pneumothorax is seen. The skeletal structures are osteopenic. The bony thorax is grossly intact. IMPRESSION: No acute cardiopulmonary abnormality is identified. ACT 112: Negative or not required by law. Electronically signed by: Rey Mays M.D. 06/17/2022 5:07 PM PG Care Time/CCT Total # of Minutes Spent Total Time Spent with Patient: Total time spent is greater than 50% in coordination of care (as documented) at patient's floor/unit and/or counseling patient: Coding Level of Care Code 36078 SUB INP/OBS CARE 07/01MIN Diagnoses Acute electrocardiogram changes R94.31 Right knee DJD M17.11 Rheumatoid arthritis M06.9 Elevated hemidiaphragm J98.6 Allergic rhinitis J30.9
[2022-06-18] MEDS ORDERED: dexAMETHasone 10 MG in SYRINGE 0 ML IV SCH (08:00)
[2022-06-18 08:30] LABS: BUN Creatinine Ratio 19.6 (10-20); Creatinine Clr Calc Pharmacy 59.6 ml/min; Est GFR (African American) 80.1 ml/min; Est GFR (Non-African American) 69.1 ml/min; Potassium 4.5 mmol/L (3.5-5.1)
--- NOTE | 2022-06-18 09:52 | Orthopedic Progress Note ---
Date of Service June 18, 2022 Assessment & Plan (1) S/P total knee replacement using cement: Plan: Patient's dressings were changed by me. REYNA stocking was applied. He should leave the dressings in place until Wednesday, at which time they can be changed if soiled. Start PT/OT today. Weight-bear as tolerated. Anticipate discharge to [facility], hopefully later today. They are holding a bed for him. Continue Coumadin per nomogram. INR should be Between 1.8 and 2.2. Follow-up in the office in 2 weeks as scheduled for staple removal. Importance of icing and elevating the leg for pain control was discussed at length with the patient. Admission and Anticipated Discharge Date Admission Date: June 17, 2022 Subjective Patient is seen in his room this morning. He states he feels well. He did well overnight. Currently denies any chest pain, shortness of breath, nausea, vomiting, or abdominal pain. He does complain of some upper thigh pain, in the area of his tourniquet from yesterday. He is sitting in a chair at bedside at this time. No other complaints. Review of Systems Review of Systems: Unchanged from yesterday. Physical Exam Physical Exam: General: Well-developed, well-nourished, elderly male, in no acute distress. Sitting in a chair. Alert and oriented. Conversive. Skin: Warm dry with fair turgor. No rashes. Patient does have a postsurgical dressing in place on the right leg. Upon removal, vish are in place over the anterior knee. He has scant dry blood on his inner dressings. No active bleeding. No significant ecchymosis or edema yet. Musculoskeletal: Patient has intact motor function to the right toes, ankle, knee, and hip. He is able to perform a straight leg raise. Nearly full terminal extension. Flexion to around 70 degrees without difficulty. Neurologic: Gross sensation is intact across the right leg by soft touch. Peripheral pulses are 2+. Results & Data ([facility]) Vital Signs (Past 12 Hours) Vital Signs Temp Pulse Pulse Resp BP BP Pulse Ox 06/18/22 07:46 36.6 C 56 L 19 117/66 95 06/18/22 03:45 58 L 06/18/22 03:26 36.5 C 60 18 125/72 95 06/17/22 23:24 36.6 C 62 18 129/68 94 O2 Del Method O2 Flow Rate 06/18/22 07:46 Nasal Cannula 2 06/18/22 03:45 06/18/22 03:26 Nasal Cannula 2 06/17/22 23:24 Nasal Cannula Laboratory Results CBC shows white count of 16.2. Hemoglobin 11.7 and hematocrit 33.8. Elevation white count is likely from his surgery and steroid dose. INR today is 1.3. PRP is unremarkable.
[2022-06-18] MEDS: FERROUS GLUCONATE 324 MG TAB PO SCH ×2 (10:19→18:19)
[2022-06-18] MEDS: CALCIUM CARBONATE 500 MG CHEWABLE TAB PO SCH (10:19)
[2022-06-18] MEDS: ASCORBIC ACID 500 MG TAB PO SCH ×2 (10:19→18:18)
[2022-06-18] MEDS: DOCUSATE SODIUM 100 MG CAP PO SCH ×2 (10:19→20:49)
[2022-06-18] MEDS ORDERED: LORATADINE 10 MG TAB PO ONE (10:30)
[2022-06-18] MEDS: MULTIVITAMIN TAB PO SCH (11:04)
[2022-06-18] MEDS: CHOLECALCIFEROL 1,000 UNITS 25 MCG TAB PO SCH (11:04)
--- NOTE | 2022-06-18 15:14 | Electrocardiogram Report ---
Test Reason : Blood Pressure : / mmHG Vent. Rate : 068 BPM Atrial Rate : 068 BPM P-R Int : 172 ms QRS Dur : 086 ms QT Int : 388 ms P-R-T Axes : 031 -36 -25 degrees QTc Int : 412 ms Poor data quality, interpretation may be adversely affected Normal sinus rhythm Left axis deviation Moderate voltage criteria for LVH, may be normal variant Nonspecific T wave abnormality Lateral leads When compared with ECG of 17-JUN-2022 09:26, Nonspecific T wave abnormality has replaced inverted T waves in Lateral leads Confirmed by Eleazar Noble ([id number]) on 06/18/2022 3:14:17 PM Referred By: Wilder Chang Confirmed By:Eleazar Noble
[2022-06-18] MEDS ORDERED: WARFARIN SOD 2.5 MG TAB PO SCH (16:00)
[2022-06-18] MEDS: ORTHO WARFARIN NOMOGRAM SCH (16:31)
[2022-06-18] MEDS ORDERED: WARFARIN SOD 3 MG TAB PO SCH (16:45)
[2022-06-18] MEDS: SENNA 8.6 MG TAB PO SCH (20:48)
[2022-06-19] MEDS: LEVOTHYROXINE SODIUM 137 MCG TABLET PO SCH (05:34)
[2022-06-19] MEDS: ACETAMINOPHEN 500 MG TAB PO SCH ×2 (05:34→12:16)
--- NOTE | 2022-06-19 06:57 | Progress Notes ---
SUBJECTIVE: Postop day #2, status post right total knee replacement. The patient is sitting up in bed. He is comfortable. Pain is well managed. Denies chest pain, shortness of breath, fever, chills, nausea, vomiting or headache. He is frustrated, he was not discharged yesterday based on insurance restrictions. Looks like, we will be able to finalize that today, hopefully. Feels like he is getting behind because he cannot get at the appropriate therapy. OBJECTIVE: Physical exam today reveals wound dressing to be clean, dry and intact. Neurovascular check, femoral sciatic nerve is normal. Can do a straight leg raise. He had a bump behind his knee. I have asked him not to do that. That is inappropriate to keep his extension. He needs to have the bump behind his heel. He can flex his knee 0-90 degrees to tolerance. He can be full weightbearing on his leg. INR 2.0 today . Hold coumadin today. Restart Methotrexate 1 week post op. We can discontinue the telemetry. Follow up with us in roughly 2 weeks for staple removal. Keep INR 1.8-2.2. Job ID: [id number] [facility]
[2022-06-19 07:44] LABS: Prothrombin Time 20.3 Seconds (9.0-12.0)
[2022-06-19] MEDS: CHOLECALCIFEROL 1,000 UNITS 25 MCG TAB PO SCH (08:25)
[2022-06-19] MEDS: ASCORBIC ACID 500 MG TAB PO SCH (08:27)
[2022-06-19] MEDS: MULTIVITAMIN TAB PO SCH (08:28)
[2022-06-19] MEDS: FERROUS GLUCONATE 324 MG TAB PO SCH (08:29)
[2022-06-19] MEDS: CALCIUM CARBONATE 500 MG CHEWABLE TAB PO SCH (08:30)
[2022-06-19] MEDS: DOCUSATE SODIUM 100 MG CAP PO SCH (08:32)
[2022-06-19] MEDS ORDERED: LORATADINE 10 MG TAB PO SCH (09:00)
== END 2022-06-19 13:30 ==
LOC: 2N 05:05 → ASU 05:05